=== PATIENT | female | born 1975 | race Asian ===

== ENCOUNTER 2019-04-10 23:28 | Emergency (ER) | payer BC, OTHER ==
[~2019-04-10] VITALS: Ht 152.4 cm; Wt 70.9 kg
[2019-04-10 23:31] VITALS: Ht 152.4 cm; Wt 70.9 kg
[2019-04-11] MEDS ORDERED: SOD CHLORIDE 0.9% 1,000 ML IV STA (01:21)
[2019-04-11] MEDS ORDERED: CIPR500T4 PO (04:02)
[2019-04-11] MEDS ORDERED: METR500T PO (04:02)
[2019-04-11] MEDS ORDERED: TRAM50TA2 PO (04:02)
--- NOTE | 2019-04-11 04:03 | ERD ---
ER Documentation Chief Complaint Chief Complaint BLOOD IN STOOL X2HRS WITHJ ABD CRAMPS; NO BLOOD THINNERS HPI This is a 44-year-old 45 episodes of diarrhea that has become dark and tarry. She states she has cramping in the left lower quadrant as well. No fevers no chills no nausea vomiting. No sick contacts. No other current complaints. ROS All systems reviewed and are negative except as per history of present illness. Medications Home Meds Active Scripts Tramadol HCl (Tramadol HCl) 50 Mg Tablet, 50 MG PO Q4 PRN for PAIN, #20 TAB Prov:ILEANA MART [place]. 04/11/19 Metronidazole* (Flagyl*) 500 Mg Tablet, 500 MG PO TID for 7 Days, TAB Prov:ILEANA MART. 04/11/19 Ciprofloxacin Hcl* (Ciprofloxacin Hcl*) 500 Mg Tablet, 500 MG PO BID for 7 Days, TAB Prov:BISHNUILEANA HUNTLEY. 04/11/19 PMhx/Soc Medical and Surgical Hx: pt denies Medical Hx, pt denies Surgical Hx Hx Alcohol Use: Yes (occassionally) Hx Substance Use: No Hx Tobacco Use: No Smoking Status: Never smoker Physical Exam Vitals Vital Signs Date Temp Pulse Resp B/P (MAP) Pulse Ox O2 O2 Flow FiO2 Time Delivery Rate 04/10/19 97.3 78 19 158/79 96 23:31 (105) Physical Exam Const: No acute distress Head: Atraumatic Eyes: Normal Conjunctiva ENT: Normal External Ears, Nose and Mouth. Neck: Full range of motion. No meningismus. Resp: Clear to auscultation bilaterally Cardio: Regular rate and rhythm, no murmurs Abd: Soft, non tender, non distended. Normal bowel sounds Skin: No petechiae or rashes Back: No midline or flank tenderness Ext: No cyanosis, or edema Neur: Awake and alert Psych: Normal Mood and Affect Result Diagram: 04/11/19 0153 04/11/19152 Results 24 hrs Laboratory Tests Test 04/11/19 01:53 04/11/19 02:04 White Blood Count 15.1 10^3/ul Red Blood Count 4.51 10^6/ul Hemoglobin 13.8 g/dl Hematocrit 41.2 % Mean Corpuscular Volume 91.4 fl Mean Corpuscular Hemoglobin 30.6 pg Mean Corpuscular Hemoglobin Concent 33.5 g/dl Red Cell Distribution Width 12.0 % Platelet Count 232 10^3/UL Mean Platelet Volume 10.6 fl Immature Granulocytes % 0.500 % Neutrophils % 87.4 % Lymphocytes % 4.6 % Monocytes % 6.9 % Eosinophils % 0.1 % Basophils % 0.5 % Nucleated Red Blood Cells % 0.0 /100WBC Immature Granulocytes # 0.080 10^3/ul Neutrophils # 13.2 10^3/ul Lymphocytes # 0.7 10^3/ul Monocytes # 1.0 10^3/ul Eosinophils # 0.0 10^3/ul Basophils # 0.1 10^3/ul Nucleated Red Blood Cells # 0.0 10^3/ul Urine Color YELLOW Urine Clarity CLEAR Urine pH 7.0 Urine Specific [place] 1.017 Urine Ketones NEGATIVE mg/dL Urine Nitrite NEGATIVE mg/dL Urine Bilirubin NEGATIVE mg/dL Urine Urobilinogen NEGATIVE mg/dL Urine Leukocyte Esterase TRACE Michaela/ul Urine Microscopic RBC 2 /HPF Urine Microscopic WBC 4 /HPF Urine Squamous Epithelial Cells FEW /HPF Urine Bacteria FEW /HPF Urine Hemoglobin 1+ mg/dL Urine Glucose NEGATIVE mg/dL Urine Total Protein NEGATIVE mg/dl Sodium Level 140 mmol/L Potassium Level 4.5 mmol/L Chloride Level 106 mmol/L Carbon Dioxide Level 26 mmol/L Anion Gap 8 Blood Urea Nitrogen 19 mg/dl Creatinine 0.65 mg/dl Est Glomerular Filtrat Rate mL/min > 60 mL/min Glucose Level 122 mg/dl Calcium Level 10.1 mg/dl Total Bilirubin 0.6 mg/dl Direct Bilirubin 0.00 mg/dl Indirect Bilirubin 0.6 mg/dl Aspartate Amino Transf (AST/SGOT) 22 IU/L Alanine Aminotransferase (ALT/SGPT) 20 IU/L Alkaline Phosphatase 99 IU/L Total Protein 7.9 g/dl Albumin 4.6 g/dl Globulin 3.30 g/dl Albumin/Globulin Ratio 1.39 Lipase 55 U/L POC Beta HCG, Qualitative NEGATIVE Current Medications Medications Dose Sig/Ivone Start Time Status Last (Trade) Ordered Route PRN Stop Time Admin Dose Reason Admin Sodium 1,000 ml @ Q1H STAT 04/11/19 DC 04/11/19 Chloride 1,000 mls/hr IV 01:21 02:15 04/11/19 02:20 Procedures/MDM Medical decision m[age]-year-old female likely has what looks to be infectio us colitis. At this point is clinically stable. Patient be discharged with Cipro Flagyl tramadol. I have asked her to follow-up in 8 hours for serial abdominal exams. I did note incidental finding on the CAT scan was concerning and I relayed this information to the patient. Advised her to follow-up with her primary care physician which she agrees. Departure Diagnosis: Primary Impression: Rectal hemorrhage Condition: Stable Patient Instructions: Gastroenteritis, Bacterial (Child) (Adult) ILEANA MART April 11, 2019 04:03
[2019-04-11 04:30] VITALS: BP 122/89; PULSE 73; RESP 19
== END 2019-04-11 04:49 | disposition home or self-care (01) ==
LOC: E/R 23:28
DX: K62.5 Hemorrhage of anus and rectum (principal)
CPT/HCPCS: 36415; 74176; 80053; 81001; 81025; 83690; 85025; 99285; J7030